=== PATIENT | male | born 1960 | race Caucasian/White ===

== ENCOUNTER 2021-11-12 18:17 | Inpatient (IN) ==
[2021-11-12] MEDS ORDERED: Nitroglycerin 0.4 MG TAB.SUBL SL PRN (18:38)
[2021-11-14] MEDS ORDERED: D5% in Water 1,000 ML IVC PRN (04:13)
[2021-11-14] MEDS ORDERED: Dextrose Gel 15 GM/37.5 ML TUBE PO PRN ×2 (04:13)
[2021-11-14] MEDS ORDERED: *HR* Dextrose 50 % in Water (Syg) 50 ML SYRINGE IVP PRN (04:14)
[2021-11-14] MEDS: Benzonatate 100 MG CAPSULE PO PRN (05:07)
[2021-11-14] MEDS: *HR* Enoxaparin 40 MG/0.4 ML SYRINGE SQ SCH (05:07)
[2021-11-14] MEDS: *HR* Metformin 500 MG TABLET PO SCH ×5 (05:08→21:39)
[2021-11-14] MEDS: Furosemide 20 MG TABLET PO SCH ×2 (05:30→08:52)
[2021-11-14] MEDS: Aspirin Enteric Coated 81 MG Tablet PO SCH ×2 (05:30→08:53)
[2021-11-14] MEDS ORDERED: Ondansetron ODT 4 MG TAB.RAPDIS SL PRN (06:00)
[2021-11-14] MEDS: Insulin LISPRO 300 UNITS/3 ML VIAL SUBQ SCH ×4 (08:50→21:39)
[2021-11-14] MEDS: Dorzolamide OPTH 10 ML BOTTLE LEFT EYE SCH ×3 (08:56→21:39)
[2021-11-14] MEDS: Budesonide/Formoterol 160/4.5 1 PUFF INH IH SCH ×2 (09:29→22:03)
[2021-11-15] MEDS: *HR* Enoxaparin 40 MG/0.4 ML SYRINGE SQ SCH (05:22)
[2021-11-15] MEDS: Insulin LISPRO 300 UNITS/3 ML VIAL SUBQ SCH ×4 (07:14→21:25)
[2021-11-15] MEDS: *HR* Metformin 500 MG TABLET PO SCH ×2 (07:25→21:25)
[2021-11-15] MEDS: Furosemide 20 MG TABLET PO SCH (07:25)
[2021-11-15] MEDS: Aspirin Enteric Coated 81 MG Tablet PO SCH (07:25)
[2021-11-15] MEDS: Dorzolamide OPTH 10 ML BOTTLE LEFT EYE SCH ×3 (07:29→21:25)
[2021-11-15] MEDS: Benzonatate 100 MG CAPSULE PO PRN ×2 (08:00→15:02)
[2021-11-15 08:08] LABS: Hematocrit 41.1 % (37.5-50.1); Hemoglobin 13.2 g/dL (12.9-16.9); Mean Corpuscular HGB Conc 32.1 g/dL (31.6-35.5); Mean Corpuscular Hemoglobin 26.9 pg (28.0-33.3); Mean Corpuscular Volume 83.7 fL (83.0-100.0); Mean Platelet Volume 10.4 fL (9.4-12.4); Platelet Count 166 K/mcL (140-400); Red Blood Count 4.91 M/mcL (4.19-5.50); Red Cell Distribution Width 17.4 % (11.5-14.5); White Blood Count 7.6 K/mcL (4.3-11.1)
[2021-11-15] MEDS ORDERED: Furosemide 40 MG/4 ML VIAL IVP ONE (08:16)
[2021-11-15 08:24] LABS: BUN/Creatinine Ratio 16 (6-26); Blood Urea Nitrogen 15 mg/dL (8-23); Calcium 8.7 mg/dL (8.6-10.3); Carbon Dioxide 31 mEq/L (23-29); Chloride 99 mEq/L (98-107); Glucose 165 mg/dL (70-105); Osmolality,Calculated 291 (280-300); Potassium 3.3 mEq/L (3.5-5.1); Sodium 138 mEq/L (136-145); eGFR For African Americans > 60 (> 60); eGFR For Non-African Americans > 60 (> 60)
[2021-11-15] MEDS: Budesonide/Formoterol 160/4.5 1 PUFF INH IH SCH ×2 (09:23→21:09)
[2021-11-15] MEDS ORDERED: Albuterol 2.5 MG/3 ML NEBULIZER IH PRN (14:35)
[2021-11-15] MEDS: Albumin 25% 25gram/100mL 25 GM/100 ML IV.SOLN IVPB SCH (19:00)
[2021-11-15] MEDS: Albuterol 2.5 MG/3 ML NEBULIZER IH SCH (21:08)
[2021-11-15] MEDS: Furosemide 40 MG/4 ML VIAL IVP SCH (21:25)
[2021-11-16] MEDS: Albumin 25% 25gram/100mL 25 GM/100 ML IV.SOLN IVPB SCH ×2 (00:47→08:42)
[2021-11-16] MEDS: Albuterol 2.5 MG/3 ML NEBULIZER IH SCH ×6 (01:25→20:12)
[2021-11-16] MEDS: *HR* Enoxaparin 40 MG/0.4 ML SYRINGE SQ SCH (05:20)
[2021-11-16 08:09] LABS: Hematocrit 39.7 % (37.5-50.1); Hemoglobin 12.6 g/dL (12.9-16.9); Mean Corpuscular HGB Conc 31.7 g/dL (31.6-35.5); Mean Corpuscular Hemoglobin 26.6 pg (28.0-33.3); Mean Corpuscular Volume 83.8 fL (83.0-100.0); Mean Platelet Volume 11.1 fL (9.4-12.4); Platelet Count 165 K/mcL (140-400); Red Blood Count 4.74 M/mcL (4.19-5.50); Red Cell Distribution Width 17.6 % (11.5-14.5); White Blood Count 9.3 K/mcL (4.3-11.1)
[2021-11-16] MEDS: Budesonide/Formoterol 160/4.5 1 PUFF INH IH SCH ×2 (08:31→20:23)
[2021-11-16 08:35] LABS: BUN/Creatinine Ratio 17 (6-26); Blood Urea Nitrogen 15 mg/dL (8-23); Calcium 9.2 mg/dL (8.6-10.3); Carbon Dioxide 28 mEq/L (23-29); Chloride 98 mEq/L (98-107); Glucose 159 mg/dL (70-105); Osmolality,Calculated 290 (280-300); Sodium 138 mEq/L (136-145); eGFR For African Americans > 60 (> 60); eGFR For Non-African Americans > 60 (> 60)
[2021-11-16] MEDS: Furosemide 40 MG/4 ML VIAL IVP SCH ×2 (08:39→20:38)
[2021-11-16] MEDS: Insulin LISPRO 300 UNITS/3 ML VIAL SUBQ SCH ×4 (08:40→20:40)
[2021-11-16] MEDS: Dorzolamide OPTH 10 ML BOTTLE LEFT EYE SCH ×3 (08:41→20:39)
[2021-11-16] MEDS: Aspirin Enteric Coated 81 MG Tablet PO SCH (08:41)
[2021-11-16] MEDS: *HR* Metformin 500 MG TABLET PO SCH ×2 (08:41→20:38)
[2021-11-16] MEDS ORDERED: Furosemide 40 MG/4 ML VIAL IVP SCH (09:00)
[2021-11-16] MEDS: carvediloL 6.25 MG TABLET PO SCH ×2 (10:49→17:20)
[2021-11-16] MEDS: Benzonatate 100 MG CAPSULE PO PRN (20:38)
[2021-11-16] MEDS ORDERED: D10% in Water 500 ML ONE (23:25)
[2021-11-16] MEDS: D10% in Water 500 ML IVC SCH (23:35)
[2021-11-16 23:40] LABS: Basophils % 0.2 %; Eosinophils % 0.3 %; Hemoglobin 12.6 g/dL (12.9-16.9); Immature Granulocytes % 0.9 % (0-4); Lymphocytes % 13.3 %; Mean Corpuscular HGB Conc 31.5 g/dL (31.6-35.5); Mean Corpuscular Hemoglobin 26.3 pg (28.0-33.3); Mean Corpuscular Volume 83.5 fL (83.0-100.0); Mean Platelet Volume 10.3 fL (9.4-12.4); Monocytes # 1.8 K/mcL (0.0-1.3); Monocytes % 12.2 %; Neutrophils # 10.8 K/mcL (1.6-8.9); Platelet Count 190 K/mcL (140-400); Red Blood Count 4.79 M/mcL (4.19-5.50); Red Cell Distribution Width 17.8 % (11.5-14.5); Segmented Neutrophils % 73.1 %; White Blood Count 14.8 K/mcL (4.3-11.1)
[2021-11-17 00:09] LABS: BUN/Creatinine Ratio 18 (6-26); Blood Urea Nitrogen 17 mg/dL (8-23); Calcium 9.5 mg/dL (8.6-10.3); Carbon Dioxide 30 mEq/L (23-29); Chloride 99 mEq/L (98-107); Glucose 38 mg/dL (70-105); Magnesium 1.5 mg/dL (1.6-2.6); Osmolality,Calculated 284 (280-300); Potassium 3.1 mEq/L (3.5-5.1); Sodium 138 mEq/L (136-145); eGFR For African Americans > 60 (> 60); eGFR For Non-African Americans > 60 (> 60)
[2021-11-17] MEDS: Albuterol 2.5 MG/3 ML NEBULIZER IH SCH ×7 (00:40→23:36)
[2021-11-17] MEDS: *HR* Enoxaparin 40 MG/0.4 ML SYRINGE SQ SCH (06:28)
[2021-11-17 07:48] LABS: Hematocrit 37.8 % (37.5-50.1); Hemoglobin 11.9 g/dL (12.9-16.9); Mean Corpuscular HGB Conc 31.5 g/dL (31.6-35.5); Mean Corpuscular Hemoglobin 26.6 pg (28.0-33.3); Mean Corpuscular Volume 84.4 fL (83.0-100.0); Mean Platelet Volume 10.5 fL (9.4-12.4); Platelet Count 156 K/mcL (140-400); Red Blood Count 4.48 M/mcL (4.19-5.50); Red Cell Distribution Width 17.9 % (11.5-14.5); White Blood Count 9.7 K/mcL (4.3-11.1)
[2021-11-17] MEDS: Budesonide/Formoterol 160/4.5 1 PUFF INH IH SCH ×2 (07:49→20:19)
[2021-11-17 08:04] LABS: BUN/Creatinine Ratio 20 (6-26); Blood Urea Nitrogen 18 mg/dL (8-23); Calcium 8.9 mg/dL (8.6-10.3); Carbon Dioxide 31 mEq/L (23-29); Chloride 98 mEq/L (98-107); Glucose 198 mg/dL (70-105); Osmolality,Calculated 293 (280-300); Potassium 3.6 mEq/L (3.5-5.1); Sodium 138 mEq/L (136-145); eGFR For African Americans > 60 (> 60); eGFR For Non-African Americans > 60 (> 60)
[2021-11-17] MEDS: Insulin LISPRO 300 UNITS/3 ML VIAL SUBQ SCH ×4 (08:37→21:41)
[2021-11-17] MEDS: carvediloL 6.25 MG TABLET PO SCH ×2 (08:47→17:38)
[2021-11-17] MEDS: Aspirin Enteric Coated 81 MG Tablet PO SCH (08:48)
[2021-11-17] MEDS: Benzonatate 100 MG CAPSULE PO PRN ×2 (08:48→21:38)
[2021-11-17] MEDS: Furosemide 40 MG/4 ML VIAL IVP SCH ×2 (08:48→21:40)
[2021-11-17] MEDS: Dorzolamide OPTH 10 ML BOTTLE LEFT EYE SCH ×3 (09:00→21:42)
[2021-11-17] MEDS: Ergocalciferol (VIT D2) 50,000 UNIT (1.25MG) CAP PO SCH (12:08)
[2021-11-17] MEDS: D10% in Water 500 ML IVC SCH (19:13)
[2021-11-18] MEDS: Albuterol 2.5 MG/3 ML NEBULIZER IH SCH ×5 (04:45→20:27)
[2021-11-18] MEDS: *HR* Enoxaparin 40 MG/0.4 ML SYRINGE SQ SCH (06:45)
[2021-11-18] MEDS: Aspirin Enteric Coated 81 MG Tablet PO SCH (08:15)
[2021-11-18] MEDS: carvediloL 6.25 MG TABLET PO SCH ×2 (08:15→17:10)
[2021-11-18] MEDS: Dorzolamide OPTH 10 ML BOTTLE LEFT EYE SCH ×3 (08:17→21:26)
[2021-11-18] MEDS: Insulin LISPRO 300 UNITS/3 ML VIAL SUBQ SCH ×4 (08:18→21:26)
[2021-11-18 08:25] LABS: Hematocrit 40.3 % (37.5-50.1); Hemoglobin 12.5 g/dL (12.9-16.9); Mean Corpuscular Hemoglobin 26.3 pg (28.0-33.3); Mean Corpuscular Volume 84.8 fL (83.0-100.0); Mean Platelet Volume 10.3 fL (9.4-12.4); Platelet Count 169 K/mcL (140-400); Red Blood Count 4.75 M/mcL (4.19-5.50); Red Cell Distribution Width 18.3 % (11.5-14.5)
[2021-11-18] MEDS: Benzonatate 100 MG CAPSULE PO PRN (08:27)
[2021-11-18 08:42] LABS: BUN/Creatinine Ratio 22 (6-26); Blood Urea Nitrogen 22 mg/dL (8-23); Carbon Dioxide 32 mEq/L (23-29); Chloride 100 mEq/L (98-107); Glucose 149 mg/dL (70-105); Osmolality,Calculated 298 (280-300); Potassium 3.4 mEq/L (3.5-5.1); Sodium 141 mEq/L (136-145); eGFR For African Americans > 60 (> 60); eGFR For Non-African Americans > 60 (> 60)
[2021-11-18] MEDS ORDERED: Furosemide 40 MG/4 ML VIAL IVP SCH (09:00)
[2021-11-18] MEDS: Budesonide/Formoterol 160/4.5 1 PUFF INH IH SCH ×2 (11:23→20:28)
[2021-11-19] MEDS: Albuterol 2.5 MG/3 ML NEBULIZER IH SCH ×6 (00:48→20:13)
[2021-11-19] MEDS: *HR* Enoxaparin 40 MG/0.4 ML SYRINGE SQ SCH (05:49)
[2021-11-19 07:40] LABS: Hematocrit 41.6 % (37.5-50.1); Hemoglobin 12.9 g/dL (12.9-16.9); Mean Corpuscular Hemoglobin 26.6 pg (28.0-33.3); Mean Corpuscular Volume 85.8 fL (83.0-100.0); Mean Platelet Volume 10.5 fL (9.4-12.4); Platelet Count 166 K/mcL (140-400); Red Blood Count 4.85 M/mcL (4.19-5.50); Red Cell Distribution Width 18.5 % (11.5-14.5); White Blood Count 11.1 K/mcL (4.3-11.1)
[2021-11-19 07:55] LABS: BUN/Creatinine Ratio 22 (6-26); Blood Urea Nitrogen 21 mg/dL (8-23); Calcium 9.1 mg/dL (8.6-10.3); Carbon Dioxide 32 mEq/L (23-29); Chloride 102 mEq/L (98-107); Glucose 152 mg/dL (70-105); Osmolality,Calculated 302 (280-300); Potassium 3.7 mEq/L (3.5-5.1); Sodium 143 mEq/L (136-145); eGFR For African Americans > 60 (> 60); eGFR For Non-African Americans > 60 (> 60)
[2021-11-19] MEDS: Insulin LISPRO 300 UNITS/3 ML VIAL SUBQ SCH ×4 (08:07→21:52)
[2021-11-19] MEDS: Furosemide 40 MG TABLET PO SCH (08:08)
[2021-11-19] MEDS: Aspirin Enteric Coated 81 MG Tablet PO SCH (08:08)
[2021-11-19] MEDS: carvediloL 6.25 MG TABLET PO SCH ×2 (08:09→16:17)
[2021-11-19] MEDS: Dorzolamide OPTH 10 ML BOTTLE LEFT EYE SCH ×3 (08:10→21:51)
[2021-11-19] MEDS: Budesonide/Formoterol 160/4.5 1 PUFF INH IH SCH ×2 (08:23→20:13)
[2021-11-19] MEDS: Chlorhexidine Rinse 15 ML MOUTHWASH MM SCH (21:52)
[2021-11-20] MEDS: Albuterol 2.5 MG/3 ML NEBULIZER IH SCH ×7 (00:42→23:26)
[2021-11-20 05:01] LABS: Hematocrit 40.7 % (37.5-50.1); Hemoglobin 12.4 g/dL (12.9-16.9); Mean Corpuscular HGB Conc 30.5 g/dL (31.6-35.5); Mean Corpuscular Hemoglobin 26.6 pg (28.0-33.3); Mean Corpuscular Volume 87.2 fL (83.0-100.0); Mean Platelet Volume 10.3 fL (9.4-12.4); Platelet Count 163 K/mcL (140-400); Red Blood Count 4.67 M/mcL (4.19-5.50); White Blood Count 10.4 K/mcL (4.3-11.1)
[2021-11-20] MEDS: *HR* Enoxaparin 40 MG/0.4 ML SYRINGE SQ SCH (05:48)
[2021-11-20 06:00] LABS: BUN/Creatinine Ratio 23 (6-26); Blood Urea Nitrogen 21 mg/dL (8-23); Calcium 8.7 mg/dL (8.6-10.3); Carbon Dioxide 28 mEq/L (23-29); Chloride 103 mEq/L (98-107); Glucose 150 mg/dL (70-105); Osmolality,Calculated 298 (280-300); Sodium 141 mEq/L (136-145); eGFR For African Americans > 60 (> 60); eGFR For Non-African Americans > 60 (> 60)
[2021-11-20] MEDS: Insulin LISPRO 300 UNITS/3 ML VIAL SUBQ SCH ×4 (07:45→22:12)
[2021-11-20] MEDS: Aspirin Enteric Coated 81 MG Tablet PO SCH (07:55)
[2021-11-20] MEDS: carvediloL 6.25 MG TABLET PO SCH ×2 (07:55→15:58)
[2021-11-20] MEDS: Chlorhexidine Rinse 15 ML MOUTHWASH MM SCH ×2 (07:56→22:05)
[2021-11-20] MEDS: Dorzolamide OPTH 10 ML BOTTLE LEFT EYE SCH ×3 (07:56→22:03)
[2021-11-20] MEDS: Acetaminophen 325 MG TABLET PO PRN (07:59)
[2021-11-20] MEDS: Budesonide/Formoterol 160/4.5 1 PUFF INH IH SCH ×2 (08:19→20:17)
[2021-11-20] MEDS ORDERED: Menthol 1 EACH LOZENGE PO PRN (11:35)
[2021-11-21] MEDS: Albuterol 2.5 MG/3 ML NEBULIZER IH SCH ×5 (04:18→20:22)
[2021-11-21] MEDS: *HR* Enoxaparin 40 MG/0.4 ML SYRINGE SQ SCH (05:49)
[2021-11-21] MEDS: Insulin LISPRO 300 UNITS/3 ML VIAL SUBQ SCH ×4 (07:37→21:13)
[2021-11-21] MEDS: Furosemide 40 MG TABLET PO SCH ×2 (07:38→11:22)
[2021-11-21] MEDS: carvediloL 6.25 MG TABLET PO SCH ×2 (07:59→15:50)
[2021-11-21] MEDS: Aspirin Enteric Coated 81 MG Tablet PO SCH (08:01)
[2021-11-21] MEDS: Chlorhexidine Rinse 15 ML MOUTHWASH MM SCH ×2 (08:01→20:44)
[2021-11-21] MEDS: Dorzolamide OPTH 10 ML BOTTLE LEFT EYE SCH ×3 (08:02→20:45)
[2021-11-21] MEDS: Budesonide/Formoterol 160/4.5 1 PUFF INH IH SCH ×2 (09:15→20:22)
[2021-11-21] MEDS: Benzonatate 100 MG CAPSULE PO PRN (20:44)
[2021-11-22] MEDS: Albuterol 2.5 MG/3 ML NEBULIZER IH SCH ×3 (00:34→09:13)
[2021-11-22] MEDS: *HR* Enoxaparin 40 MG/0.4 ML SYRINGE SQ SCH (05:44)
[2021-11-22 07:17] LABS: BUN/Creatinine Ratio 19 (6-26); Blood Urea Nitrogen 16 mg/dL (8-23); Calcium 8.6 mg/dL (8.6-10.3); Carbon Dioxide 29 mEq/L (23-29); Chloride 104 mEq/L (98-107); Glucose 146 mg/dL (70-105); Osmolality,Calculated 296 (280-300); Potassium 3.9 mEq/L (3.5-5.1); Sodium 141 mEq/L (136-145); eGFR For African Americans > 60 (> 60); eGFR For Non-African Americans > 60 (> 60)
[2021-11-22] MEDS: Insulin LISPRO 300 UNITS/3 ML VIAL SUBQ SCH ×4 (07:31→22:04)
[2021-11-22] MEDS: Chlorhexidine Rinse 15 ML MOUTHWASH MM SCH ×2 (08:14→19:55)
[2021-11-22] MEDS: Furosemide 40 MG TABLET PO SCH (08:14)
[2021-11-22] MEDS: carvediloL 6.25 MG TABLET PO SCH ×2 (08:14→16:27)
[2021-11-22] MEDS: Aspirin Enteric Coated 81 MG Tablet PO SCH (08:14)
[2021-11-22] MEDS: Dorzolamide OPTH 10 ML BOTTLE LEFT EYE SCH ×3 (08:21→19:55)
[2021-11-22] MEDS: Budesonide/Formoterol 160/4.5 1 PUFF INH IH SCH ×2 (09:14→22:23)
[2021-11-22] MEDS ORDERED: Albuterol 2.5 MG/3 ML NEBULIZER IH PRN (10:22)
[2021-11-22] MEDS: Ipratropium/Albuterol Neb 3 ML IH SCH ×2 (15:27→22:23)
[2021-11-22] MEDS: Acetaminophen 325 MG TABLET PO PRN (17:12)
[2021-11-22] MEDS: Benzonatate 100 MG CAPSULE PO PRN (19:55)
[2021-11-23] MEDS: Ipratropium/Albuterol Neb 3 ML IH SCH ×4 (04:43→21:30)
[2021-11-23] MEDS: *HR* Enoxaparin 40 MG/0.4 ML SYRINGE SQ SCH (06:18)
[2021-11-23] MEDS: carvediloL 6.25 MG TABLET PO SCH ×2 (08:22→16:40)
[2021-11-23] MEDS: Furosemide 40 MG TABLET PO SCH (08:23)
[2021-11-23] MEDS: Dorzolamide OPTH 10 ML BOTTLE LEFT EYE SCH ×3 (08:24→19:35)
[2021-11-23] MEDS: Aspirin Enteric Coated 81 MG Tablet PO SCH (08:25)
[2021-11-23] MEDS: Chlorhexidine Rinse 15 ML MOUTHWASH MM SCH ×2 (08:26→19:35)
[2021-11-23] MEDS: Insulin LISPRO 300 UNITS/3 ML VIAL SUBQ SCH ×4 (08:26→19:36)
[2021-11-23] MEDS: Budesonide/Formoterol 160/4.5 1 PUFF INH IH SCH ×2 (10:23→21:22)
[2021-11-23] MEDS: Benzonatate 100 MG CAPSULE PO PRN (19:35)
[2021-11-24] MEDS: Ipratropium/Albuterol Neb 3 ML IH SCH ×4 (04:24→21:59)
[2021-11-24] MEDS: *HR* Enoxaparin 40 MG/0.4 ML SYRINGE SQ SCH (05:14)
[2021-11-24] MEDS: Furosemide 40 MG TABLET PO SCH (08:16)
[2021-11-24] MEDS: carvediloL 6.25 MG TABLET PO SCH ×2 (08:16→17:00)
[2021-11-24] MEDS: Aspirin Enteric Coated 81 MG Tablet PO SCH (08:16)
[2021-11-24] MEDS: Chlorhexidine Rinse 15 ML MOUTHWASH MM SCH ×2 (08:17→20:05)
[2021-11-24] MEDS: Insulin LISPRO 300 UNITS/3 ML VIAL SUBQ SCH ×4 (08:17→20:06)
[2021-11-24] MEDS: Dorzolamide OPTH 10 ML BOTTLE LEFT EYE SCH ×3 (08:18→20:04)
[2021-11-24] MEDS: Budesonide/Formoterol 160/4.5 1 PUFF INH IH SCH ×2 (09:45→21:59)
[2021-11-24] MEDS: Ergocalciferol (VIT D2) 50,000 UNIT (1.25MG) CAP PO SCH (12:07)
[2021-11-24] MEDS: Benzonatate 100 MG CAPSULE PO PRN (20:04)
[2021-11-25] MEDS: Ipratropium/Albuterol Neb 3 ML IH SCH ×4 (04:15→22:11)
[2021-11-25] MEDS: Acetaminophen 325 MG TABLET PO PRN (06:57)
[2021-11-25] MEDS: Furosemide 40 MG TABLET PO SCH (07:56)
[2021-11-25] MEDS: Aspirin Enteric Coated 81 MG Tablet PO SCH (07:56)
[2021-11-25] MEDS: carvediloL 6.25 MG TABLET PO SCH ×2 (07:56→16:17)
[2021-11-25] MEDS: Chlorhexidine Rinse 15 ML MOUTHWASH MM SCH ×2 (07:56→19:55)
[2021-11-25] MEDS: *HR* Enoxaparin 40 MG/0.4 ML SYRINGE SQ SCH (07:56)
[2021-11-25] MEDS: Dorzolamide OPTH 10 ML BOTTLE LEFT EYE SCH ×3 (07:58→19:55)
[2021-11-25] MEDS: Insulin LISPRO 300 UNITS/3 ML VIAL SUBQ SCH ×4 (07:59→19:56)
[2021-11-25] MEDS: Budesonide/Formoterol 160/4.5 1 PUFF INH IH SCH ×2 (10:37→22:12)
[2021-11-25] MEDS ORDERED: Saline Nasal Spray 44 ML BOTTLE NS PRN (14:37)
[2021-11-25] MEDS ORDERED: Furosemide 20 MG/2 ML VIAL IVP ONE (14:40)
[2021-11-26] MEDS: Ipratropium/Albuterol Neb 3 ML IH SCH ×4 (04:10→21:41)
[2021-11-26] MEDS: *HR* Enoxaparin 40 MG/0.4 ML SYRINGE SQ SCH (04:32)
[2021-11-26 07:28] LABS: Basophils # 0.1 K/mcL (0.0-0.2); Basophils % 0.7 %; Eosinophils # 0.1 K/mcL (0.0-0.6); Eosinophils % 0.6 %; Hematocrit 41.6 % (37.5-50.1); Hemoglobin 12.8 g/dL (12.9-16.9); Immature Granulocytes % 3.9 % (0-4); Lymphocytes # 2.6 K/mcL (0.6-4.6); Lymphocytes % 20.7 %; Mean Corpuscular HGB Conc 30.8 g/dL (31.6-35.5); Mean Corpuscular Hemoglobin 26.4 pg (28.0-33.3); Mean Corpuscular Volume 85.8 fL (83.0-100.0); Mean Platelet Volume 9.8 fL (9.4-12.4); Monocytes # 1.4 K/mcL (0.0-1.3); Monocytes % 11.3 %; Neutrophils # 7.9 K/mcL (1.6-8.9); Platelet Count 298 K/mcL (140-400); Red Blood Count 4.85 M/mcL (4.19-5.50); Red Cell Distribution Width 18.2 % (11.5-14.5); Segmented Neutrophils % 62.8 %; White Blood Count 12.5 K/mcL (4.3-11.1)
[2021-11-26 07:46] LABS: BUN/Creatinine Ratio 22 (6-26); Blood Urea Nitrogen 20 mg/dL (8-23); Calcium 8.8 mg/dL (8.6-10.3); Carbon Dioxide 32 mEq/L (23-29); Chloride 101 mEq/L (98-107); Glucose 162 mg/dL (70-105); Osmolality,Calculated 296 (280-300); Potassium 3.9 mEq/L (3.5-5.1); Sodium 140 mEq/L (136-145); eGFR For African Americans > 60 (> 60); eGFR For Non-African Americans > 60 (> 60)
[2021-11-26] MEDS: carvediloL 6.25 MG TABLET PO SCH ×2 (09:08→18:23)
[2021-11-26] MEDS: Dorzolamide OPTH 10 ML BOTTLE LEFT EYE SCH ×3 (09:08→19:42)
[2021-11-26] MEDS: Furosemide 40 MG TABLET PO SCH (09:08)
[2021-11-26] MEDS: Insulin LISPRO 300 UNITS/3 ML VIAL SUBQ SCH ×4 (09:09→21:49)
[2021-11-26] MEDS: Aspirin Enteric Coated 81 MG Tablet PO SCH (09:09)
[2021-11-26] MEDS: Chlorhexidine Rinse 15 ML MOUTHWASH MM SCH ×2 (09:09→19:42)
[2021-11-26] MEDS: Budesonide/Formoterol 160/4.5 1 PUFF INH IH SCH ×2 (10:01→21:41)
[2021-11-26] MEDS: Acetaminophen 325 MG TABLET PO PRN ×2 (10:47→19:42)
[2021-11-26] MEDS: Benzonatate 100 MG CAPSULE PO PRN (19:42)
[2021-11-26] MEDS ORDERED: Albumin 25% 25gram/100mL 25 GM/100 ML IV.SOLN IVPB ONE (22:54)
[2021-11-27] MEDS: Benzonatate 100 MG CAPSULE PO PRN ×2 (01:10→07:40)
[2021-11-27] MEDS: Acetaminophen 325 MG TABLET PO PRN (03:14)
[2021-11-27] MEDS: Ipratropium/Albuterol Neb 3 ML IH SCH ×2 (04:21→09:36)
[2021-11-27] MEDS: *HR* Enoxaparin 40 MG/0.4 ML SYRINGE SQ SCH (05:17)
[2021-11-27] MEDS: Chlorhexidine Rinse 15 ML MOUTHWASH MM SCH (07:39)
[2021-11-27] MEDS: Aspirin Enteric Coated 81 MG Tablet PO SCH (07:40)
[2021-11-27] MEDS: Furosemide 40 MG TABLET PO SCH (07:40)
[2021-11-27] MEDS: carvediloL 6.25 MG TABLET PO SCH (07:40)
[2021-11-27] MEDS: Dorzolamide OPTH 10 ML BOTTLE LEFT EYE SCH (07:42)
[2021-11-27] MEDS: Insulin LISPRO 300 UNITS/3 ML VIAL SUBQ SCH ×2 (07:42→12:50)
[2021-11-27] MEDS ORDERED: Isovue-370 500 ML BOTTLE IVP ONE ×2 (08:47→09:00)
[2021-11-27 09:34] LABS: ABG Base Excess 2 mEq/L (-2 to 3); ABG HCO3 27 mEq/L (21-27); ABG Oxygen Saturation 88 % (95-98); ABG PCO2 42 mmHg (35-45); ABG PH 7.42 pH Units (7.32-7.45); ABG PO2 53 mmHg (85-104); ABG TCO2 28 mEq/L (20-26)
[2021-11-27] MEDS: Budesonide/Formoterol 160/4.5 1 PUFF INH IH SCH (09:37)
[2021-11-27 09:49] LABS: Basophils # 0.1 K/mcL (0.0-0.2); Basophils % 0.5 %; Eosinophils # 0.1 K/mcL (0.0-0.6); Eosinophils % 0.5 %; Hematocrit 42.5 % (37.5-50.1); Hemoglobin 13.3 g/dL (12.9-16.9); Immature Granulocytes % 1.7 % (0-4); Lymphocytes # 1.7 K/mcL (0.6-4.6); Lymphocytes % 8.5 %; Mean Corpuscular HGB Conc 31.3 g/dL (31.6-35.5); Mean Corpuscular Hemoglobin 26.9 pg (28.0-33.3); Mean Corpuscular Volume 85.9 fL (83.0-100.0); Mean Platelet Volume 10.3 fL (9.4-12.4); Monocytes # 0.8 K/mcL (0.0-1.3); Nucleated Red Blood Cells 0.1 /100 WBC (0); Platelet Count 275 K/mcL (140-400); Red Blood Count 4.95 M/mcL (4.19-5.50); Red Cell Distribution Width 18.6 % (11.5-14.5); Segmented Neutrophils % 84.8 %; White Blood Count 20.3 K/mcL (4.3-11.1)
[2021-11-27 10:00] LABS: Neutrophils # 17.2 K/mcL (1.6-8.9)
[2021-11-27 10:01] LABS: BUN/Creatinine Ratio 23 (6-26); Blood Urea Nitrogen 23 mg/dL (8-23); Calcium 8.6 mg/dL (8.6-10.3); Carbon Dioxide 28 mEq/L (23-29); Chloride 98 mEq/L (98-107); Glucose 184 mg/dL (70-105); Osmolality,Calculated 290 (280-300); Potassium 3.9 mEq/L (3.5-5.1); Sodium 136 mEq/L (136-145); eGFR For African Americans > 60 (> 60); eGFR For Non-African Americans > 60 (> 60)
[2021-11-27 10:51] VITALS: BP 101/68; PULSE 81; RESP 24; TEMP 98.5
[2021-11-27] MEDS ORDERED: Piperacillin/Tazobactam 3.375 GM in 0.9 % Sodium Chloride Mini Bag 100 ML IVPB SCH (11:00)
[2021-11-27 11:24] LABS: Anisocytosis 1+ (Not Present); Microcytosis Present (Not Present); Platelet Estimate Normal (Normal); Reactive Lymphocytes Present (Not Present)
[2021-11-27] MEDS ORDERED: *HR* Heparin 5,000 UNIT/ML VIAL IVP ONE (11:48)
[2021-11-27] MEDS ORDERED: *HR* Heparin 5,000 UNIT/ML VIAL IVP PRN ×2 (11:48)
[2021-11-27] MEDS ORDERED: Heparin 25,000UNIT/250ML 1/2NS 25,000 UNIT/250 ML IV.SOLN IVC SCH (12:00)
[2021-11-27] MEDS ORDERED: Vancomycin 1,500 MG/265 ML IV.SOLN IVPB SCH (12:00)
[2021-11-27 12:17] LABS: Hematocrit 39.1 % (37.5-50.1); Hemoglobin 12.4 g/dL (12.9-16.9); Mean Corpuscular HGB Conc 31.7 g/dL (31.6-35.5); Mean Corpuscular Hemoglobin 27.3 pg (28.0-33.3); Mean Corpuscular Volume 85.9 fL (83.0-100.0); Mean Platelet Volume 10.1 fL (9.4-12.4); Platelet Count 246 K/mcL (140-400); Red Blood Count 4.55 M/mcL (4.19-5.50); Red Cell Distribution Width 18.4 % (11.5-14.5); White Blood Count 18.8 K/mcL (4.3-11.1)
[2021-11-27 12:22] VITALS: O2SAT 93
[2021-11-27 12:30] LABS: Heparin anti-factor XA UFH 0.06 IU/mL (0.30-0.70); INR 1.3; Prothrombin Time 14.4 Seconds (9.4-12.1)
[2021-11-27 14:17] LABS: Adenovirus Not Detected (Not Detect); Bordetella Pertussis Not Detected (Not Detect); Chlamydophila pneumoniae Not Detected (Not Detect); Coronavirus 229E Not Detected (Not Detect); Coronavirus HKU1 Not Detected (Not Detect); Coronavirus NL63 Not Detected (Not Detect); Coronavirus OC43 Not Detected (Not Detect); Human Metapneumovirus Not Detected (Not Detect); Human Rhinovirus/Enterovirus Not Detected (Not Detect); Influenza A Subtype 2009 H1 Not Detected (Not Detect); Influenza B Not Detected (Not Detect); Mycoplasma pneumoniae Not Detected (Not Detect); Parainfluenza Virus 1 Not Detected (Not Detect); Parainfluenza Virus 2 Not Detected (Not Detect); Parainfluenza Virus 3 Not Detected (Not Detect); Parainfluenza Virus 4 Not Detected (Not Detect); Respiratory Syncytial Virus Not Detected (Not Detect); SARS-CoV-2 Not Detected (Not Detect)
[2021-11-27] MEDS ORDERED: Dextrose Gel 15 GM/37.5 ML TUBE PO PRN ×2 (15:48)
[2021-11-27] MEDS ORDERED: *HR* Dextrose 50 % in Water (Syg) 50 ML SYRINGE IVP PRN (15:48)
[2021-11-27] MEDS ORDERED: D5% in Water 1,000 ML IVC PRN (15:48)
[2021-11-27] MEDS ORDERED: Insulin LISPRO 300 UNITS/3 ML VIAL SUBQ SCH ×3 (16:30→21:00)
[2021-11-27] MEDS ORDERED: MethylPREDNISolone 40 MG/ML VIAL IVP SCH (18:00)
[2021-11-27] MEDS ORDERED: Insulin DETEMIR 100 UNIT/ML X5UNITS SUBQ SCH (21:00)
== END 2021-11-27 13:21 | disposition short-term general hospital (02) ==
LOC: INPPIK 11-14 04:06
PROVIDERS: ADMIT Family Medicine; ATTEND Family Medicine